=== PATIENT | female | born 1995 | race Caucasian/White ===

== ENCOUNTER → 2017-09-06 | Outpatient (CLI) | payer BC, OTHER ==
[~2017-09-06] MED LIST: AMOX500 PO; AMOX50SU; Amoxicillin500 MG PO; BC PILLS; CODACE30 PO; IBUP600 PO; IBUP800 PO; IRON150C PO; NEOPOLHCSU AS; NEOPOLHCSU LEFTEAR; ONDA4 PO; PENVK500 PO; PROM25 PO; RXCODACET PO; RXNEOPOLHC AS; Veetids 500500 MG PO; Verotin-Gr Cap1 EACH PO
[2017-09-07 15:04] LABS: Source VAGINAL
== END | disposition home or self-care (01) ==
LOC: LAB 11:44
PROVIDERS: Obstetrics & Gynecology
DX: Z33.1 Pregnant state, incidental (principal); Z11.3 Encounter for screening for infections with a predominantly sexual mode of transmission
CPT/HCPCS: 87491; 87591; G0123

== ENCOUNTER 2017-09-23 23:13 | Emergency (ER) | payer BC, OTHER ==
[~2017-09-23] VITALS: Ht 154.9 cm; Wt 52.6 kg
[~2017-09-23 23:13] MED LIST changes: -IBUP800 PO; -IRON150C PO; -PROM25 PO; -Verotin-Gr Cap1 EACH PO
[2017-09-23] MEDS ORDERED: Verotin-Gr Cap1 EACH PO (23:43)
[2017-09-24 00:25] LABS: BASOPHILS ABSOLUTE AUTO 0.01 K/mm3 (0.00-0.23); BASOPHILS PERCENT AUTO 0 % (0-2); EOSINOPHILS ABSOLUTE AUTO 0.01 K/mm3 (0.00-0.68); EOSINOPHILS PERCENT AUTO 0 % (0-6); Hematocrit 36.4 % (33.0-51.0); Hemoglobin 12.3 g/dL (11.5-16.0); IMMATURE GRAN ABSOLUTE AUTO 0.03 K/mm3 (0.00-0.10); IMMATURE GRAN PERCENT AUTO 0 % (0-1); LYMPHOCYTES ABSOLUTE AUTO 0.73 K/mm3 (0.84-5.20); LYMPHOCYTES PERCENT AUTO 8 % (21-46); MONOCYTES ABSOLUTE AUTO 0.59 K/mm3 (0.16-1.47); MONOCYTES PERCENT AUTO 7 % (4-13); Mean Corpuscular HGB 28.1 pg (26.0-34.0); Mean Corpuscular HGB Conc 33.8 g/dL (31.5-36.5); Mean Corpuscular Volume 83 fL (80-100); Mean Platelet Volume 11.3 fL (9.1-12.4); NEUTROPHILS ABSOLUTE AUTO 7.62 K/mm3 (1.96-9.15); NEUTROPHILS PERCENT AUTO 85 % (41-73); Platelet Count 202 K/mm3 (150-400); RDW Coefficient Variation 12.7 % (11.7-14.2); RDW Standard Deviation 38.8 fL (35.1-46.3); Red Blood Cell Count 4.37 M/mm3 (3.80-5.20); White Blood Cell Count 8.99 K/mm3 (4.00-11.30)
[2017-09-24 00:37] LABS: Alanine Aminotransfer (ALT/SGP 16 U/L (12-78); Albumin, Blood 3.5 g/dL (3.4-5.0); Alk Phos 51 U/L (50-136); Anion Gap 10 mmol/L (6-16); Aspartate Aminotrans (AST/SGOT 13 U/L (12-37); Bilirubin, Total 1.3 mg/dL (0.1-1.0); Blood Urea Nitrogen 6 mg/dL (8-24); Bun/Creatinine Ratio 13.8 (12.0-20.0); CO2, Blood 23 mmol/L (21-32); Calcium, Blood 8.6 mg/dL (8.5-10.1); Chloride, Blood 102 mmol/L (98-108); Creatinine, Blood 0.43 mg/dL (0.40-1.00); Glomerular Filtration Rate >60 (60-); Glucose, Blood 112 mg/dL (70-99); Potassium, Blood 3.4 mmol/L (3.5-5.5); Sodium, Blood 135 mmol/L (136-145)
[2017-09-24 00:49] LABS: Albumin/Globulin Ratio 0.8 (0.8-1.8); Globulin, Blood 4.2 g/dL (2.2-4.0); Total Protein, Blood 7.7 g/dL (6.4-8.2)
[2017-09-24 00:52] LABS: Influenza A Negative (NEGATIVE); Influenza B Negative (NEGATIVE)
[2017-09-24] MEDS ORDERED: PROM25 PO (00:53)
[2017-09-24 01:01] LABS: Source, Urine Voided
[2017-09-24 01:09] LABS: Bilirubin, Urine Neg (Neg); Blood, Urine Neg (Neg); Glucose Qualitative, Urine Neg (Neg); Ketones, Urine Neg (Neg); Leukocyte Esterase, Urine Neg (Neg); Nitrite, Urine Neg (Neg); Protein, Urine Neg (Neg); Urobilinogen, Urine NORM (Normal)
[2017-09-24 01:13] LABS: Appearance, Urine Clear (Clear); Color, Urine Yellow (P-Yellow)
== END 2017-09-24 01:34 | disposition home or self-care (01) ==
LOC: ER 23:13
PROVIDERS: Emergency Medicine
DX: O21.9 Vomiting of pregnancy, unspecified (principal); Z3A.13 13 weeks gestation of pregnancy
CPT/HCPCS: 36415; 80053; 81003; 85025; 87804; 96374; 99283; J2550; J7120

== ENCOUNTER → 2017-11-28 | Outpatient (CLI) | payer BC, OTHER ==
[~2017-11-28] MED LIST changes: +PROM25 PO; +Verotin-Gr Cap1 EACH PO
[2017-11-28 11:20] LABS: Source, Urine Clean Catch
[2017-11-28 13:07] LABS: Appearance, Urine Hazy (Clear); Bilirubin, Urine Neg (Neg); Blood, Urine 5+ (Neg); Color, Urine Yellow (P-Yellow); Glucose Qualitative, Urine Neg (Neg); Ketones, Urine Neg (Neg); Leukocyte Esterase, Urine Neg (Neg); Nitrite, Urine Neg (Neg); Protein, Urine Neg (Neg); Urobilinogen, Urine NORM (Normal); pH, Urine 6.5 (5.0-8.0)
[2017-11-28 13:36] LABS: Red Blood Cells, Urine 25-50 /hpf (0-2); White Blood Cells, Urine Not Seen /hpf (0-5)
[2017-11-28 13:37] LABS: Bacteria Many /hpf; Squamous Epithelial Cells Few /hpf (Few); Transitional Epithelial Cells Few /hpf (0-Rare)
== END | disposition home or self-care (01) ==
LOC: LAB SHORT 11:13 → LAB 11:13
PROVIDERS: Obstetrics & Gynecology
DX: R82.99 Other abnormal findings in urine (principal)
CPT/HCPCS: 81001; 87086

== ENCOUNTER → 2018-03-06 | Outpatient (CLI) | payer BC, OTHER | END | disposition home or self-care (01) | LOC: LAB SHORT 11:11 → LAB 11:11 | DX: Z33.1 Pregnant state, incidental (principal) | CPT/HCPCS: 87081; 87653 ==

== ENCOUNTER 2018-04-03 19:58 | Inpatient (IN) | payer BC, OTHER ==
[~2018-04-03] VITALS: Ht 154.9 cm; Wt 59.0 kg
[2018-04-03] MEDS ORDERED: IRON150C PO (20:21)
[2018-04-03 20:25] LABS: BASOPHILS ABSOLUTE AUTO 0.02 K/mm3 (0.00-0.23); BASOPHILS PERCENT AUTO 0 % (0-2); EOSINOPHILS ABSOLUTE AUTO 0.05 K/mm3 (0.00-0.68); EOSINOPHILS PERCENT AUTO 1 % (0-6); Hematocrit 36.5 % (33.0-51.0); Hemoglobin 12.2 g/dL (11.5-16.0); IMMATURE GRAN ABSOLUTE AUTO 0.03 K/mm3 (0.00-0.10); IMMATURE GRAN PERCENT AUTO 0 % (0-1); LYMPHOCYTES ABSOLUTE AUTO 1.78 K/mm3 (0.84-5.20); LYMPHOCYTES PERCENT AUTO 24 % (21-46); MONOCYTES ABSOLUTE AUTO 0.54 K/mm3 (0.16-1.47); MONOCYTES PERCENT AUTO 7 % (4-13); Mean Corpuscular HGB 28.6 pg (26.0-34.0); Mean Corpuscular HGB Conc 33.4 g/dL (31.5-36.5); Mean Corpuscular Volume 86 fL (80-100); NEUTROPHILS ABSOLUTE AUTO 5.12 K/mm3 (1.96-9.15); NEUTROPHILS PERCENT AUTO 68 % (41-73); Platelet Count 108 K/mm3 (150-400); RDW Coefficient Variation 13.2 % (11.7-14.2); RDW Standard Deviation 41.1 fL (35.1-46.3); Red Blood Cell Count 4.26 M/mm3 (3.80-5.20); White Blood Cell Count 7.54 K/mm3 (4.00-11.30)
[2018-04-03 20:29] LABS: Mean Platelet Volume 13.4 fL (9.1-12.4)
[2018-04-04 09:31] LABS: Hematocrit 37.3 % (33.0-51.0); Hemoglobin 12.4 g/dL (11.5-16.0); Mean Corpuscular HGB 28.6 pg (26.0-34.0); Mean Corpuscular HGB Conc 33.2 g/dL (31.5-36.5); Mean Corpuscular Volume 86 fL (80-100); Platelet Count 104 K/mm3 (150-400); RDW Coefficient Variation 13.2 % (11.7-14.2); RDW Standard Deviation 41.4 fL (35.1-46.3); Red Blood Cell Count 4.33 M/mm3 (3.80-5.20); White Blood Cell Count 8.23 K/mm3 (4.00-11.30)
[2018-04-04 09:32] LABS: Mean Platelet Volume 14.1 fL (9.1-12.4)
[2018-04-04 17:24] LABS: pH Umbilical Cord - Venous 7.38 (7.26-7.35)
[2018-04-04 17:25] LABS: PCO2 Cord - Venous 38.1 mmHg (40-50); PO2 Cord - Venous 34.6 mmHg (28-32)
[2018-04-05 05:15] LABS: Hematocrit 31.9 % (33.0-51.0); Hemoglobin 10.7 g/dL (11.5-16.0); Mean Corpuscular HGB Conc 33.5 g/dL (31.5-36.5); Mean Corpuscular Volume 86 fL (80-100); Platelet Count 100 K/mm3 (150-400); RDW Coefficient Variation 13.1 % (11.7-14.2); RDW Standard Deviation 41.2 fL (35.1-46.3); Red Blood Cell Count 3.69 M/mm3 (3.80-5.20); White Blood Cell Count 16.11 K/mm3 (4.00-11.30)
[2018-04-05 05:16] LABS: Mean Platelet Volume 13.7 fL (9.1-12.4)
[2018-04-05] MEDS ORDERED: IBUP800 PO (14:36)
[2018-04-05 15:02] LABS: Hematocrit 34.4 % (33.0-51.0); Hemoglobin 11.5 g/dL (11.5-16.0); Mean Corpuscular HGB 29.1 pg (26.0-34.0); Mean Corpuscular HGB Conc 33.4 g/dL (31.5-36.5); Mean Corpuscular Volume 87 fL (80-100); Platelet Count 113 K/mm3 (150-400); RDW Coefficient Variation 13.1 % (11.7-14.2); RDW Standard Deviation 41.8 fL (35.1-46.3); Red Blood Cell Count 3.95 M/mm3 (3.80-5.20); White Blood Cell Count 14.73 K/mm3 (4.00-11.30)
[2018-04-05 15:10] LABS: Mean Platelet Volume 13.7 fL (9.1-12.4)
== END 2018-04-05 18:25 | disposition home or self-care (01) | DRG 775 ==
LOC: BC 19:58
PROVIDERS: Obstetrics & Gynecology
PROC: 10E0XZZ Delivery of Products of Conception, External Approach (ICD-10-PCS; principal; 2018-04-03)
PROC: 0KQM0ZZ Repair Perineum Muscle, Open Approach (ICD-10-PCS; 2018-04-03)
PROC: 10907ZC Drainage of Amniotic Fluid, Therapeutic from Products of Conception, Via Natural or Artificial Opening (ICD-10-PCS; 2018-04-03)
PROC: 0UQMXZZ Repair Vulva, External Approach (ICD-10-PCS; 2018-04-03)
PROC: 0U7C7ZZ Dilation of Cervix, Via Natural or Artificial Opening (ICD-10-PCS; 2018-04-03)
DX: O99.12 Other diseases of the blood and blood-forming organs and certain disorders involving the immune mechanism complicating childbirth (principal); Z37.0 Single live birth; D69.6 Thrombocytopenia, unspecified; Z3A.40 40 weeks gestation of pregnancy; O70.1 Second degree perineal laceration during delivery; O70.0 First degree perineal laceration during delivery
CPT/HCPCS: 36415; 51702; 82803; 85025; 85027; J1885; J2590; J3010; J7120

== ENCOUNTER → 2019-06-14 | Outpatient (CLI) | payer BC, OTHER ==
[~2019-06-14] MED LIST changes: +IBUP800 PO; +IRON150C PO
== END | disposition home or self-care (01) ==
LOC: LAB EV 18:57 → LAB SHORT 18:57
DX: J02.9 Acute pharyngitis, unspecified (principal)
CPT/HCPCS: 87081

== ENCOUNTER → 2020-07-07 | Outpatient (CLI) | payer BC, OTHER | END | disposition home or self-care (01) | LOC: LAB 15:28 → LAB SHORT 15:28 | DX: O26.93 Pregnancy related conditions, unspecified, third trimester (principal); Z3A.36 36 weeks gestation of pregnancy | CPT/HCPCS: 87081; 87150 ==

== ENCOUNTER 2020-07-31 06:02 | Inpatient (IN) | payer BC, OTHER ==
[~2020-07-31] VITALS: Ht 154.9 cm; Wt 60.5 kg
[2020-07-31 08:27] LABS: Influenza A, PCR Negative (NEGATIVE); Influenza B, PCR Negative (NEGATIVE); Resp Syncytial Virus, PCR Negative (NEGATIVE); SARS-Cov-2 (COVID-19) PCR, MMC Negative (NEGATIVE)
[2020-07-31 08:42] LABS: BASOPHILS ABSOLUTE AUTO 0.02 K/mm3 (0.00-0.23); BASOPHILS PERCENT AUTO 0 % (0-2); EOSINOPHILS ABSOLUTE AUTO 0.07 K/mm3 (0.00-0.68); EOSINOPHILS PERCENT AUTO 1 % (0-6); Hematocrit 37.7 % (33.0-51.0); Hemoglobin 12.5 g/dL (11.5-16.0); IMMATURE GRAN ABSOLUTE AUTO 0.04 K/mm3 (0.00-0.10); IMMATURE GRAN PERCENT AUTO 1 % (0-1); LYMPHOCYTES ABSOLUTE AUTO 1.74 K/mm3 (0.84-5.20); LYMPHOCYTES PERCENT AUTO 22 % (21-46); MONOCYTES ABSOLUTE AUTO 0.67 K/mm3 (0.16-1.47); MONOCYTES PERCENT AUTO 9 % (4-13); Mean Corpuscular HGB 29.1 pg (26.0-34.0); Mean Corpuscular HGB Conc 33.2 g/dL (31.5-36.5); Mean Corpuscular Volume 88 fL (80-100); NEUTROPHILS ABSOLUTE AUTO 5.37 K/mm3 (1.96-9.15); NEUTROPHILS PERCENT AUTO 68 % (41-73); Platelet Count 123 K/mm3 (150-400); RDW Coefficient Variation 12.8 % (11.7-14.2); RDW Standard Deviation 41.2 fL (35.1-46.3); Red Blood Cell Count 4.29 M/mm3 (3.80-5.20); White Blood Cell Count 7.91 K/mm3 (4.00-11.30)
[2020-07-31 08:46] LABS: Mean Platelet Volume 13.3 fL (9.1-12.4)
[2020-08-01 05:46] LABS: BASOPHILS ABSOLUTE AUTO 0.02 K/mm3 (0.00-0.23); BASOPHILS PERCENT AUTO 0 % (0-2); EOSINOPHILS ABSOLUTE AUTO 0.15 K/mm3 (0.00-0.68); EOSINOPHILS PERCENT AUTO 1 % (0-6); Hematocrit 33.9 % (33.0-51.0); IMMATURE GRAN ABSOLUTE AUTO 0.06 K/mm3 (0.00-0.10); IMMATURE GRAN PERCENT AUTO 1 % (0-1); LYMPHOCYTES ABSOLUTE AUTO 2.29 K/mm3 (0.84-5.20); LYMPHOCYTES PERCENT AUTO 20 % (21-46); MONOCYTES ABSOLUTE AUTO 0.81 K/mm3 (0.16-1.47); MONOCYTES PERCENT AUTO 7 % (4-13); Mean Corpuscular HGB 28.9 pg (26.0-34.0); Mean Corpuscular HGB Conc 32.4 g/dL (31.5-36.5); Mean Corpuscular Volume 89 fL (80-100); NEUTROPHILS ABSOLUTE AUTO 8.43 K/mm3 (1.96-9.15); NEUTROPHILS PERCENT AUTO 72 % (41-73); Platelet Count 108 K/mm3 (150-400); RDW Coefficient Variation 12.7 % (11.7-14.2); RDW Standard Deviation 41.4 fL (35.1-46.3); Red Blood Cell Count 3.81 M/mm3 (3.80-5.20); White Blood Cell Count 11.76 K/mm3 (4.00-11.30)
[2020-08-01 05:47] LABS: Mean Platelet Volume 13.2 fL (9.1-12.4)
[2020-08-01] MEDS ORDERED: IBUP800 PO (15:53)
== END 2020-08-01 16:55 | disposition home or self-care (01) | DRG 807 ==
LOC: OBS 06:02 → BC 06:07 → OBS 06:10 → BC 06:13
PROVIDERS: ADMIT Obstetrics & Gynecology
PROC: 10E0XZZ Delivery of Products of Conception, External Approach (ICD-10-PCS; principal; 2020-07-31)
PROC: 3E033VJ Introduction of Other Hormone into Peripheral Vein, Percutaneous Approach (ICD-10-PCS; 2020-07-31)
PROC: 10907ZC Drainage of Amniotic Fluid, Therapeutic from Products of Conception, Via Natural or Artificial Opening (ICD-10-PCS; 2020-07-31)
PROC: 0HQ9XZZ Repair Perineum Skin, External Approach (ICD-10-PCS; 2020-07-31)
PROC: 00HU33Z Insertion of Infusion Device into Spinal Canal, Percutaneous Approach (ICD-10-PCS; 2020-07-31)
PROC: 3E0R3BZ Introduction of Anesthetic Agent into Spinal Canal, Percutaneous Approach (ICD-10-PCS; 2020-07-31)
DX: O69.81X0 Labor and delivery complicated by cord around neck, without compression, not applicable or unspecified (principal); Z37.0 Single live birth; O70.0 First degree perineal laceration during delivery; Z3A.40 40 weeks gestation of pregnancy; Z20.828 Contact with and (suspected) exposure to other viral communicable diseases
CPT/HCPCS: 0241U; 36415; 85025; 86850; 86900; 86901; J1885; J2001; J2590; J3010; J7120

== ENCOUNTER → 2020-09-07 | Outpatient (CLI) | payer BC, OTHER | LOC: LAB SHORT 15:00 → LAB 15:00 | DX: R30.0 Dysuria (principal) | CPT/HCPCS: 87077; 87086; 87186 ==

== ENCOUNTER → 2021-04-29 | Outpatient (CLI) | payer BC, OTHER ==
[~2021-04-29] MED LIST changes: +ACET325 PO; +BLOOD THINNER; +DEXA4 PO; +IVERMECTIN3 MG; +SERT25 PO; +SERT50 PO
[2021-04-29 12:19] LABS: Alanine Aminotransfer (ALT/SGP 40 U/L (12-78); Albumin, Blood 3.3 g/dL (3.4-5.0); Albumin/Globulin Ratio 0.7 (0.8-1.8); Alk Phos 72 U/L (40-126); Anion Gap 12 mmol/L (6-16); Aspartate Aminotrans (AST/SGOT 37 U/L (12-37); Bilirubin, Total 0.5 mg/dL (0.1-1.0); Blood Urea Nitrogen 7 mg/dL (8-24); Bun/Creatinine Ratio 10.9 (12.0-20.0); CO2, Blood 23 mmol/L (21-32); Calcium, Blood 8.2 mg/dL (8.5-10.1); Chloride, Blood 97 mmol/L (98-108); Creatinine, Blood 0.64 mg/dL (0.40-1.00); Globulin, Blood 4.6 g/dL (2.2-4.0); Glomerular Filtration Rate >60 (60-); Glucose, Blood 101 mg/dL (70-99); Potassium, Blood 3.3 mmol/L (3.5-5.5); Sodium, Blood 132 mmol/L (136-145); Total Protein, Blood 7.9 g/dL (6.4-8.2)
[2021-04-29 12:27] LABS: Hematocrit 38.7 % (33.0-51.0); Mean Corpuscular HGB 27.9 pg (26.0-34.0); Mean Corpuscular HGB Conc 33.6 g/dL (31.5-36.5); Mean Corpuscular Volume 83 fL (80-100); Mean Platelet Volume 10.8 fL (9.1-12.4); Platelet Count 177 K/mm3 (150-400); RDW Coefficient Variation 12.8 % (11.7-14.2); RDW Standard Deviation 38.5 fL (35.1-46.3); Red Blood Cell Count 4.66 M/mm3 (3.80-5.20); White Blood Cell Count 7.24 K/mm3 (4.00-11.30)
[2021-04-29 13:05] LABS: BAND PERCENT MAN 10 % (0-8); BASOPHILS PERCENT MAN 0 % (0-2); EOSINOPHILS PERCENT MAN 0 % (0-6); LYMPHOCYTES ABSOLUTE MAN 0.28 K/mm3 (0.84-5.20); LYMPHOCYTES PERCENT MAN 4 % (21-46); MONOCYTES ABSOLUTE MAN 0.07 K/mm3 (0.16-1.47); MONOCYTES PERCENT MAN 1 % (4-13); NEUTROPHILS ABSOLUTE MAN 6.87 K/mm3 (1.96-9.15); SEG NEUTROPHILS PERCENT MAN 85 % (41-73); TOTAL CELLS COUNTED 100
== END | disposition home or self-care (01) ==
LOC: LAB 12:06 → LAB SHORT 12:06
PROVIDERS: Chiropractor
DX: U07.1 COVID-19 (principal)
CPT/HCPCS: 80053; 85025; 85379

== ENCOUNTER → 2021-04-30 | Outpatient (CLI) | payer BC ==
[2021-04-30 10:20] LABS: BASOPHILS PERCENT AUTO 0 % (0-2); EOSINOPHILS PERCENT AUTO 0 % (0-6); Hematocrit 36.9 % (33.0-51.0); Hemoglobin 12.5 g/dL (11.5-16.0); IMMATURE GRAN ABSOLUTE AUTO 0.03 K/mm3 (0.00-0.10); IMMATURE GRAN PERCENT AUTO 0 % (0-1); LYMPHOCYTES PERCENT AUTO 8 % (21-46); MONOCYTES ABSOLUTE AUTO 0.25 K/mm3 (0.16-1.47); MONOCYTES PERCENT AUTO 3 % (4-13); Mean Corpuscular HGB 28.6 pg (26.0-34.0); Mean Corpuscular HGB Conc 33.9 g/dL (31.5-36.5); Mean Corpuscular Volume 84 fL (80-100); Mean Platelet Volume 11.1 fL (9.1-12.4); NEUTROPHILS ABSOLUTE AUTO 6.86 K/mm3 (1.96-9.15); NEUTROPHILS PERCENT AUTO 89 % (41-73); Platelet Count 202 K/mm3 (150-400); Red Blood Cell Count 4.37 M/mm3 (3.80-5.20); White Blood Cell Count 7.74 K/mm3 (4.00-11.30)
[2021-04-30 10:25] LABS: Anion Gap 9 mmol/L (6-16); Blood Urea Nitrogen 10 mg/dL (8-24); Bun/Creatinine Ratio 16.9 (12.0-20.0); CO2, Blood 27 mmol/L (21-32); Calcium, Blood 8.5 mg/dL (8.5-10.1); Chloride, Blood 102 mmol/L (98-108); Creatinine, Blood 0.59 mg/dL (0.40-1.00); Glomerular Filtration Rate >60 (60-); Glucose, Blood 97 mg/dL (70-99); Potassium, Blood 3.7 mmol/L (3.5-5.5); Sodium, Blood 138 mmol/L (136-145)
== END | disposition home or self-care (01) ==
LOC: LAB SHORT 10:13 → LAB 10:13
PROVIDERS: Physician Assistant Surgical
DX: U07.1 COVID-19 (principal)
CPT/HCPCS: 80048; 85025

== ENCOUNTER 2021-05-01 17:07 | Inpatient (IN) | payer BC ==
[~2021-05-01] VITALS: Ht 154.9 cm; Wt 51.4 kg
[~2021-05-01 17:07] MED LIST changes: -ACET325 PO; -BLOOD THINNER; -DEXA4 PO; -IVERMECTIN3 MG; -SERT25 PO; -SERT50 PO
[2021-05-01] MEDS ORDERED: ACET325 PO (17:21)
[2021-05-01] MEDS ORDERED: IVERMECTIN3 MG (17:22)
[2021-05-01] MEDS ORDERED: BLOOD THINNER (17:25)
[2021-05-01] MEDS ORDERED: SERT25 PO (17:26)
[2021-05-01] MEDS ORDERED: SERT50 PO (17:26)
[2021-05-01 17:48] LABS: BASOPHILS ABSOLUTE AUTO 0.01 K/mm3 (0.00-0.23); BASOPHILS PERCENT AUTO 0 % (0-2); EOSINOPHILS PERCENT AUTO 0 % (0-6); IMMATURE GRAN ABSOLUTE AUTO 0.15 K/mm3 (0.00-0.10); IMMATURE GRAN PERCENT AUTO 1 % (0-1); LYMPHOCYTES ABSOLUTE AUTO 0.73 K/mm3 (0.84-5.20); LYMPHOCYTES PERCENT AUTO 5 % (21-46); MONOCYTES ABSOLUTE AUTO 0.28 K/mm3 (0.16-1.47); MONOCYTES PERCENT AUTO 2 % (4-13); Mean Corpuscular HGB 28.2 pg (26.0-34.0); Mean Corpuscular HGB Conc 33.3 g/dL (31.5-36.5); Mean Corpuscular Volume 85 fL (80-100); Mean Platelet Volume 11.1 fL (9.1-12.4); NEUTROPHILS PERCENT AUTO 92 % (41-73); Platelet Count 293 K/mm3 (150-400); RDW Coefficient Variation 13.2 % (11.7-14.2); RDW Standard Deviation 40.8 fL (35.1-46.3); Red Blood Cell Count 4.25 M/mm3 (3.80-5.20); White Blood Cell Count 14.17 K/mm3 (4.00-11.30)
[2021-05-01 18:00] LABS: Alanine Aminotransfer (ALT/SGP 58 U/L (12-78); Albumin, Blood 2.8 g/dL (3.4-5.0); Albumin/Globulin Ratio 0.7 (0.8-1.8); Alk Phos 57 U/L (50-136); Anion Gap 10 mmol/L (6-16); Aspartate Aminotrans (AST/SGOT 53 U/L (12-37); Bilirubin, Total 0.4 mg/dL (0.1-1.0); Blood Urea Nitrogen 9 mg/dL (8-24); CO2, Blood 22 mmol/L (21-32); Calcium, Blood 8.1 mg/dL (8.5-10.1); Chloride, Blood 109 mmol/L (98-108); Globulin, Blood 4.1 g/dL (2.2-4.0); Glomerular Filtration Rate >60 (60-); Glucose, Blood 110 mg/dL (70-99); Potassium, Blood 3.4 mmol/L (3.5-5.5); Sodium, Blood 141 mmol/L (136-145); Total Protein, Blood 6.9 g/dL (6.4-8.2); Troponin I <0.015 ng/mL (0.000-0.040)
[2021-05-01 18:22] LABS: Bicarbonate Venous 23.9 mmol/L (24.0-30.0); PCO2 Venous 36.3 mmHg (38-42); PO2 Venous 130 mmHg (38-42); pH Blood Venous 7.42 (7.34-7.37)
[2021-05-01 18:23] LABS: Base Excess Venous -0.9 mmol/L
--- NOTE | 2021-05-01 22:04 | NUR ---
ASSUMPTION OF CARE PATIENT ARRIVED TO UNIT AT 2129 VIA GURNEY, PATIENT PRONED UPON ARRIVAL. SHIFTED SELF TO NEW BED, TOLERATED WELL. PATIENT A/O, 15L NON REBREATHER AND 15L OXIMIZER IN PLACE WITH SATS 99%. VITALS STABLE. LUNG SOUNDS DIMINISHED BILATERALLY THROUGHOUT. EDUCATED REGARDING PLAN TO REMAIN PRONED, PATIENT TOLERATING WELL AT THIS TIME AND VERBALIZED UNDERSTANDING OF IMPORTANCE. BY 2144 RT VALERIE REMOVED OXIMIZER AND KEPT 15L NON REBREATHER IN PLACE, 02 SATS REMAINED 97-99%. WILL TITRATE DOWN TOLERATED. CALLED AT 2200 FOR STATUS UPDATE, GIVEN BY [employer]. WILL REVIEW ORDERS AND TREAT PRESCRIBED.
--- NOTE | 2021-05-02 00:02 | NUR ---
REASSESSMENT NO ACUTE CHANGES FROM INITIAL ASSESMENT. NON REBREATHER REMOVED AND OXYMIZER PLACED AT 13L, 2 SATS AT 95%. VITALS REMAIN STABLE. PATIENT REMAINS PRONED AND TOLERATING WELL. DENIES DISCOMFORTS AT THIS TIME. CALL LIGHT IN REACH.
--- NOTE | 2021-05-02 04:00 | NUR ---
REASSESSMENT NO ACUTE CHANGES FROM PREVIOUS ASSESSMENT. 02 SATS ABOVE 95% ON 11L OXYMIZER. VITALS STABLE. CONTINUES TO REMAIN AND TOLERATE PRONING WELL. CALL LIGHT IN REACH.
[2021-05-02 04:19] LABS: BASOPHILS ABSOLUTE AUTO 0.01 K/mm3 (0.00-0.23); BASOPHILS PERCENT AUTO 0 % (0-2); EOSINOPHILS PERCENT AUTO 0 % (0-6); Hematocrit 35.8 % (33.0-51.0); Hemoglobin 12.2 g/dL (11.5-16.0); IMMATURE GRAN ABSOLUTE AUTO 0.21 K/mm3 (0.00-0.10); IMMATURE GRAN PERCENT AUTO 2 % (0-1); LYMPHOCYTES ABSOLUTE AUTO 0.75 K/mm3 (0.84-5.20); LYMPHOCYTES PERCENT AUTO 7 % (21-46); MONOCYTES ABSOLUTE AUTO 0.26 K/mm3 (0.16-1.47); MONOCYTES PERCENT AUTO 2 % (4-13); Mean Corpuscular HGB 28.2 pg (26.0-34.0); Mean Corpuscular HGB Conc 34.1 g/dL (31.5-36.5); Mean Corpuscular Volume 83 fL (80-100); Mean Platelet Volume 11.3 fL (9.1-12.4); NEUTROPHILS ABSOLUTE AUTO 10.18 K/mm3 (1.96-9.15); NEUTROPHILS PERCENT AUTO 89 % (41-73); Platelet Count 271 K/mm3 (150-400); RDW Coefficient Variation 13.2 % (11.7-14.2); RDW Standard Deviation 40.6 fL (35.1-46.3); Red Blood Cell Count 4.32 M/mm3 (3.80-5.20); White Blood Cell Count 11.41 K/mm3 (4.00-11.30)
[2021-05-02 04:45] LABS: Alanine Aminotransfer (ALT/SGP 52 U/L (12-78); Albumin, Blood 2.5 g/dL (3.4-5.0); Albumin/Globulin Ratio 0.6 (0.8-1.8); Alk Phos 54 U/L (50-136); Anion Gap 10 mmol/L (6-16); Aspartate Aminotrans (AST/SGOT 39 U/L (12-37); Bilirubin, Total 0.3 mg/dL (0.1-1.0); Blood Urea Nitrogen 10 mg/dL (8-24); Bun/Creatinine Ratio 21.4 (12.0-20.0); CO2, Blood 23 mmol/L (21-32); Chloride, Blood 106 mmol/L (98-108); Creatinine, Blood 0.47 mg/dL (0.40-1.00); Glomerular Filtration Rate >60 (60-); Glucose, Blood 113 mg/dL (70-99); Potassium, Blood 3.3 mmol/L (3.5-5.5); Sodium, Blood 139 mmol/L (136-145); Total Protein, Blood 6.5 g/dL (6.4-8.2)
--- NOTE | 2021-05-02 06:14 | NUR ---
SHIFT SUMMARY PATIENT ADMITTED AT 2130, PRONED UPON ARRIVAL AND REMAINED PRONED THROUGH SHIFT. PATIENT A/O, COOPERATIVE WITH CARE, VERBALIZED UNDERSTANDING TO EDUCATION REGARDING PRONING, MEDICATIONS, OXYGEN, AND SAFETY PRECAUTIONS. STARTED WITH OXYMIZER AND NON REBREATHER AT 15L, NOW AT 11L OXYMIZER WITH 02 SATS ABOVE 95%. 1L NS GIVEN CHARTED. PATIENT REMAINS NPO BUT TOLERATES SMALL SIPS OF WATER. UTILIZED BEDPAN FOR URINE, AND WAS INCONTINENT OF URINE ONCE. CALL LIGHT REMAINS IN REACH, WILL CONTINUE TO MONITOR AND REPORT TO ONCOMING RN.
--- NOTE | 2021-05-02 19:37 | NUR ---
A 25 year old female transferred to the floor with COVID-19 from PCU. Alert and oreinted x3 , able to make needs known. On oximezer 15 L with sp02 at 91 to 95% , no SOB , chest pain , fever and dizziness noted. Vital signs are stable. per report from PCU, pt had two diarrhea this morning but no diarrhea since arrival on the floor, continue to monitor.
[2021-05-03 05:08] LABS: BASOPHILS ABSOLUTE AUTO 0.04 K/mm3 (0.00-0.23); BASOPHILS PERCENT AUTO 0 % (0-2); EOSINOPHILS PERCENT AUTO 0 % (0-6); Hematocrit 37.2 % (33.0-51.0); Hemoglobin 12.4 g/dL (11.5-16.0); Mean Corpuscular HGB 27.8 pg (26.0-34.0); Mean Corpuscular HGB Conc 33.3 g/dL (31.5-36.5); Mean Corpuscular Volume 83 fL (80-100); Mean Platelet Volume 10.9 fL (9.1-12.4); Platelet Count 323 K/mm3 (150-400); RDW Coefficient Variation 13.4 % (11.7-14.2); RDW Standard Deviation 41.1 fL (35.1-46.3); Red Blood Cell Count 4.46 M/mm3 (3.80-5.20)
[2021-05-03 05:09] LABS: IMMATURE GRAN ABSOLUTE AUTO 0.21 K/mm3 (0.00-0.10); IMMATURE GRAN PERCENT AUTO 2 % (0-1); LYMPHOCYTES PERCENT AUTO 14 % (21-46); MONOCYTES PERCENT AUTO 6 % (4-13); NEUTROPHILS ABSOLUTE AUTO 9.05 K/mm3 (1.96-9.15); NEUTROPHILS PERCENT AUTO 78 % (41-73)
[2021-05-03 05:36] LABS: Albumin, Blood 2.4 g/dL (3.4-5.0); Anion Gap 7 mmol/L (6-16); Blood Urea Nitrogen 17 mg/dL (8-24); Bun/Creatinine Ratio 33.8 (12.0-20.0); CO2, Blood 25 mmol/L (21-32); Calcium, Blood 8.2 mg/dL (8.5-10.1); Chloride, Blood 106 mmol/L (98-108); Glomerular Filtration Rate >60 (60-); Glucose, Blood 94 mg/dL (70-99); Phosphorus, Blood 3.9 mg/dL (2.5-4.9); Potassium, Blood 3.6 mmol/L (3.5-5.5); Sodium, Blood 138 mmol/L (136-145)
--- NOTE | 2021-05-03 06:54 | NUR ---
TOLERATED 14 LITERS ON OXIMIZER WELL OVERNIGHT. ATIVAN GIVEN FOR NAUSEA AND ANXIETY. SLEPT ON SIDE AND PRONE MOST OF NIGHT.
--- NOTE | 2021-05-03 17:05 | NUR ---
PT IS A/OX4, PLEASANT AND COOPERATIVE. THE PT HAS BEEN TAPERED DOWN TO 5L/MIN O2 VIA NC WHILE AT REST IN BED FORM 13L/MIN O2 VIA OXYMIZER THIS AM. PT DENIES ANY PAIN. THE PT HAS BEEN ENCOURAGED TO LAY PRONE OFTEN SHE CAN TOLERATE. CALL LIGHT IN REACH WILL CONTINUE TO MONITOR AND ASSESS FOR CHANGES.
[2021-05-04 04:39] LABS: BASOPHILS ABSOLUTE AUTO 0.04 K/mm3 (0.00-0.23); BASOPHILS PERCENT AUTO 1 % (0-2); EOSINOPHILS PERCENT AUTO 0 % (0-6); Hematocrit 38.8 % (33.0-51.0); Mean Corpuscular HGB 28.1 pg (26.0-34.0); Mean Corpuscular HGB Conc 33.5 g/dL (31.5-36.5); Mean Corpuscular Volume 84 fL (80-100); Mean Platelet Volume 10.5 fL (9.1-12.4); Platelet Count 356 K/mm3 (150-400); RDW Coefficient Variation 13.2 % (11.7-14.2); RDW Standard Deviation 40.8 fL (35.1-46.3); Red Blood Cell Count 4.63 M/mm3 (3.80-5.20)
[2021-05-04 04:48] LABS: IMMATURE GRAN ABSOLUTE AUTO 0.22 K/mm3 (0.00-0.10); IMMATURE GRAN PERCENT AUTO 3 % (0-1); LYMPHOCYTES ABSOLUTE AUTO 1.88 K/mm3 (0.84-5.20); LYMPHOCYTES PERCENT AUTO 25 % (21-46); MONOCYTES ABSOLUTE AUTO 0.56 K/mm3 (0.16-1.47); MONOCYTES PERCENT AUTO 7 % (4-13); NEUTROPHILS PERCENT AUTO 65 % (41-73)
[2021-05-04 04:57] LABS: Albumin, Blood 2.5 g/dL (3.4-5.0); Anion Gap 5 mmol/L (6-16); Blood Urea Nitrogen 13 mg/dL (8-24); Bun/Creatinine Ratio 22.7 (12.0-20.0); CO2, Blood 29 mmol/L (21-32); Chloride, Blood 103 mmol/L (98-108); Creatinine, Blood 0.57 mg/dL (0.40-1.00); Glomerular Filtration Rate >60 (60-); Glucose, Blood 92 mg/dL (70-99); Potassium, Blood 3.7 mmol/L (3.5-5.5); Sodium, Blood 137 mmol/L (136-145)
--- NOTE | 2021-05-04 06:58 | NUR ---
PATIENT CONDITION IS THE SAME. DID ATTEMPT TO USE BSC TONIGHT INSTEAD OF BEDPAN. OXYGEN ON 7 LITERS NASAL CANNULA. NO ACUTE CHANGES NOTED OVERNIGHT
--- NOTE | 2021-05-04 16:35 | NUR ---
PT IS A/OX3 PLEASANT AND COOPERATIVE, THE PT IS UP WITH ASSIST TO THE BSC. PT DESAT'S WITH MINIMAL ACTIVITY AND BECOMES TACHY CARDIC HOWEVER RECOVER QUICKLY. THE PT HAS BEEN TITRATED TO 2L/MIN O2 VIA NC DOWN FROM 5L/MIN O2 THIS AM WILL TRY TO TITRATE OFF TO RA. PT DENIES ANY PAIN AT THIS TIME, CALL LIGHT IN REACH, WILL CONTINUE TO MONITOR AND ASSESS FOR CHANGES
--- NOTE | 2021-05-05 06:42 | NUR ---
SHIFT SUMMARY PT IS A 25 Y/O FEMALE, ADMITTED FOR ACUTE HYPOXEMIC RESPIRATORY FAILURE AND COVID POSITIVE. SHE IS A&O X 4, SBA TO THE BATHROOM. PT IS ON 2L VIA NC, SATTING > 90%. VITAL SIGNS OTHERWISE STABLE. NO C/O ACUTE PAIN OR NAUSEA. DYSPNEA NOTED WITH MOVEMENT OR AMBULATION, THOUGH PT DOES GET ANXIOUS WELL. NO ACUTE CHANGES IN PT CONDITION NOTED DURING THE NIGHT. WILL CONTINUE TO MONITOR AND TREAT PER EMAR UNTIL HAND OFF TO DAY SHIFT RN.
--- NOTE | 2021-05-05 13:55 | NUR ---
home o2 eval PT AT REST ON RA WAS 94%. WITH AMBULATION IN THE ROOM PT O2 REMAINED AT 95 % FOR THE DURATION.
[2021-05-05] MEDS ORDERED: DEXA4 PO (14:39)
--- NOTE | 2021-05-05 16:58 | NUR ---
pt discharged THE PT VERBALIZED UNDERSTANDING OF THE DC INSTRUCTIONS. THE PTS PRESCRIPTIONS WERE FAXED TO [facility] REQUESTED. THE PT WAS REMINDED TO CALL IN THE AM AND ESTABLISH A FOLLOW UP APPOINTMENT WITH HER PCP, THE PT WAS TRANSFERED VIA WHEEL CHAIR ACCOMPANIED BY AN ESCORT TO THE FRONT TO MEET HER RIDE, APPEARED TO BE BREATHING EASILY ON RA
== END 2021-05-05 16:58 | disposition home or self-care (01) | DRG 871 ==
LOC: ER 17:07 → MEDS 18:46 → PCU 18:46 → MEDS 05-02 15:10
PROVIDERS: Family Medicine; Physician Assistant; ADMIT Hospitalist
PROC: 8E0ZXY6 Isolation (ICD-10-PCS; principal; 2021-05-01)
PROC: XW033E5 Introduction of Remdesivir Anti-infective into Peripheral Vein, Percutaneous Approach, New Technology Group 5 (ICD-10-PCS; 2021-05-01)
PROC: 3E0333Z Introduction of Anti-inflammatory into Peripheral Vein, Percutaneous Approach (ICD-10-PCS; 2021-05-01)
DX: A41.89 Other specified sepsis (principal); U07.1 COVID-19; J12.82 Pneumonia due to coronavirus disease 2019; J96.01 Acute respiratory failure with hypoxia; E87.6 Hypokalemia; F41.9 Anxiety disorder, unspecified; Z79.899 Other long term (current) drug therapy
CPT/HCPCS: 36415; 80048; 80053; 80069; 82803; 82947; 83605; 84145; 84484; 84703; 85025; 85379; 87040; 93005; 93010; 94640; 94762; 96365; 96367; 96372-59; 96375; 99285-25; A9270; C9113; J0696; J1100; J1650; J7030; J7040

== ENCOUNTER 2024-10-03 07:04 | Inpatient (IN) | payer OTHER ==
[~2024-10-03] VITALS: Ht 152.4 cm; Wt 60.0 kg
[2024-10-03] VITALS (34 sets, daily range): BP systolic 95–135; BP diastolic 50–87
[~2024-10-03 07:04] MED LIST changes: +ACET325 PO; +BLOOD THINNER; +DEXA4 PO; +IVERMECTIN3 MG; +SERT25 PO; +SERT50 PO
[2024-10-03] MEDS ORDERED: FentaNYL Citrate 50 MCG/ML 2 ML Injection IV PRN (08:00)
[2024-10-03] MEDS ORDERED: Ondansetron HCl 2 MG / ML 2ML Vial IV PRN (08:05)
[2024-10-03] MEDS ORDERED: Lactated Ringer's 1,000 ML IV SCH ×5 (08:05→20:25)
[2024-10-03] MEDS ORDERED: Lactated Ringer's 1,000 ML IV PRN (08:05)
[2024-10-03] MEDS ORDERED: Misoprostol 200 MCG Tab PR PRN ×2 (08:05→20:25)
[2024-10-03] MEDS ORDERED: Carboprost Tromethamine 250 MCG/ML 1ML Amp IM PRN (08:05)
[2024-10-03] MEDS ORDERED: Misoprostol 200 MCG Tab BC PRN (08:05)
[2024-10-03] MEDS ORDERED: ePHEDrine Sulfate 50 MG/ML 1ML Injection XX PRN (08:05)
[2024-10-03] MEDS ORDERED: Oxytocin 10 Unit / ML Vial IM PRN (08:05)
[2024-10-03] MEDS ORDERED: Methylergonovine Maleate 0.2MG / ML 1ML Amp IM PRN ×2 (08:05→20:25)
[2024-10-03] MEDS ORDERED: Acetaminophen 500 MG Tab PO PRN (08:05)
[2024-10-03] MEDS ORDERED: OXYTOCIN/RINGER'S LACTATE 500 ML IV PRN (08:05)
[2024-10-03] MEDS ORDERED: FentaNYL 2mcg/ml-Bup 0.1% Epd 250 ML EPI PRN (08:05)
[2024-10-03] MEDS ORDERED: Calcium Carbonate 500 MG Tab Chew PO SCH (08:10)
[2024-10-03] MEDS ORDERED: Tranexamic Acid 1,000 MG in NS 100 ML IV SCH (08:25)
[2024-10-03 08:26] LABS: BASOPHILS ABSOLUTE AUTO 0.02 K/mm3 (0.00-0.23); BASOPHILS PERCENT AUTO 0 % (0-2); EOSINOPHILS ABSOLUTE AUTO 0.16 K/mm3 (0.00-0.68); EOSINOPHILS PERCENT AUTO 3 % (0-6); Hematocrit 36.8 % (33.0-51.0); Hemoglobin 12.5 g/dL (11.5-16.0); IMMATURE GRAN ABSOLUTE AUTO 0.03 K/mm3 (0.00-0.10); IMMATURE GRAN PERCENT AUTO 1 % (0-1); LYMPHOCYTES PERCENT AUTO 27 % (21-46); MONOCYTES ABSOLUTE AUTO 0.59 K/mm3 (0.16-1.47); MONOCYTES PERCENT AUTO 9 % (4-13); Mean Corpuscular HGB 28.7 pg (26.0-34.0); Mean Corpuscular Volume 85 fL (80-100); Mean Platelet Volume 11.9 fL (9.1-12.4); NEUTROPHILS ABSOLUTE AUTO 3.82 K/mm3 (1.96-9.15); NEUTROPHILS PERCENT AUTO 61 % (41-73); Platelet Count 133 K/mm3 (150-400); RDW Coefficient Variation 15.9 % (11.7-14.2); RDW Standard Deviation 49.6 fL (35.1-46.3); Red Blood Cell Count 4.35 M/mm3 (3.80-5.20); White Blood Cell Count 6.32 K/mm3 (4.00-11.30)
[2024-10-03] MEDS ORDERED: Acetaminophen 325 MG TABLET PO PRN (20:25)
[2024-10-03] MEDS ORDERED: Benzocaine Topical Anesthetic Spray 60GM TOP PRN (20:25)
[2024-10-03] MEDS ORDERED: FLU VACC TS2024-25(6MOS UP)/PF 45 MCG/0.5 ML SYRINGE IM SCH (20:30)
[2024-10-03] MEDS ORDERED: Witch Hazel/Glycerin PADS TOP PRN (20:30)
[2024-10-03] MEDS ORDERED: Docusate Sodium 100 MG Cap PO PRN (20:30)
[2024-10-03] MEDS ORDERED: OXYTOCIN/RINGER'S LACTATE 500 ML IV SCH (20:30)
[2024-10-03] MEDS ORDERED: Ibuprofen 400 MG Tab PO PRN (20:30)
[2024-10-04] VITALS (7 sets, daily range): BP systolic 115–131; BP diastolic 58–83
[2024-10-04] MEDS ORDERED: Ketorolac Tromethamine 30mg Vial IV SCH
[2024-10-04] MEDS ORDERED: Ketorolac Tromethamine 30mg Vial IV PRN ×2 (05:50→23:45)
[2024-10-04 07:44] LABS: BASOPHILS ABSOLUTE AUTO 0.03 K/mm3 (0.00-0.23); BASOPHILS PERCENT AUTO 0 % (0-2); EOSINOPHILS ABSOLUTE AUTO 0.08 K/mm3 (0.00-0.68); EOSINOPHILS PERCENT AUTO 1 % (0-6); Hemoglobin 11.6 g/dL (11.5-16.0); IMMATURE GRAN ABSOLUTE AUTO 0.05 K/mm3 (0.00-0.10); IMMATURE GRAN PERCENT AUTO 0 % (0-1); LYMPHOCYTES ABSOLUTE AUTO 1.49 K/mm3 (0.84-5.20); LYMPHOCYTES PERCENT AUTO 12 % (21-46); MONOCYTES ABSOLUTE AUTO 0.95 K/mm3 (0.16-1.47); MONOCYTES PERCENT AUTO 7 % (4-13); Mean Corpuscular HGB 29.1 pg (26.0-34.0); Mean Corpuscular HGB Conc 34.1 g/dL (31.5-36.5); Mean Corpuscular Volume 85 fL (80-100); Mean Platelet Volume 12.7 fL (9.1-12.4); NEUTROPHILS PERCENT AUTO 80 % (41-73); Platelet Count 114 K/mm3 (150-400); RDW Coefficient Variation 15.7 % (11.7-14.2); RDW Standard Deviation 49.2 fL (35.1-46.3); Red Blood Cell Count 3.99 M/mm3 (3.80-5.20)
[2024-10-04] MEDS ORDERED: Prenatal Vit/FE Fumarate/FA 1 Tab PO SCH (09:00)
== END 2024-10-04 21:20 | disposition home or self-care (01) | DRG 807 ==
LOC: OBS 07:04 → BC 07:07 → OBS 07:48 → BC 07:50
PROVIDERS: ADMIT Obstetrics & Gynecology
PROC: 10E0XZZ Delivery of Products of Conception, External Approach (ICD-10-PCS; principal; 2024-10-03)
PROC: 0HQ9XZZ Repair Perineum Skin, External Approach (ICD-10-PCS; 2024-10-03)
DX: O48.0 Post-term pregnancy (principal); Z37.0 Single live birth; Z3A.40 40 weeks gestation of pregnancy; O70.0 First degree perineal laceration during delivery; L40.9 Psoriasis, unspecified; O99.72 Diseases of the skin and subcutaneous tissue complicating childbirth
CPT/HCPCS: 36415; 51702; 85025; 86850; 86900; 86901; A9270; J1885; J2590; J7120

== ENCOUNTER 2024-11-14 12:21 | Day surgery (SDC) | payer OTHER ==
[~2024-11-14] VITALS: Ht 152.4 cm; Wt 50.7 kg
[~2024-11-14 12:21] MED LIST changes: +Bupivacaine 0.5% W/EPI 1:200000 SDV 30 ML Vial ONE; +Lactated Ringer's 1,000 ML IV ONE
[2024-11-14] MEDS ORDERED: Lactated Ringer's 1,000 ML IV ONE (12:55)
[2024-11-14] MEDS ORDERED: Ondansetron HCl 2 MG / ML 2ML Vial ONE (13:48)
[2024-11-14] MEDS ORDERED: FentaNYL Citrate 50 MCG/ML 2 ML Injection ONE (13:48)
[2024-11-14] MEDS ORDERED: Midazolam HCl 1MG / ML 2ML Vial ONE (13:48)
[2024-11-14] MEDS ORDERED: Dexamethasone Sod Phos 10 MG/ML 1ML VIAL ONE (13:48)
[2024-11-14] MEDS ORDERED: Rocuronium Bromide 10 MG/ML 5ML Injection IV ONE (13:48)
[2024-11-14] MEDS ORDERED: propofoL 20 ML IV ONE (13:48)
--- NOTE | 2024-11-14 13:56 | NUR ---
11/14/24 1356 Jv Garcia, VERSED 2MG IV GIVEN PER DR PETERSON, ANESTHESIA.
[2024-11-14] MEDS ORDERED: Sugammadex Sodium 200 MG/2ML SDV (100 MG/ML) ONE (14:18)
[2024-11-14] MEDS ORDERED: Ketorolac Tromethamine 30mg Vial ONE (14:30)
--- NOTE | 2024-11-14 14:54 | NUR ---
11/14/24 5900 Rosalba Obregon PT ARRIVES TO PACU DROWSY, BUT RESPONDS TO VERBAL STIMULI. PT DENIES PAIN/NAUSEA, VSS, ON RA. ABDOMINAL LAP SITE DRESSING C/D/I. NO VISIBLE SIGNS OF DISTRESS NOTED.
[2024-11-14 15:15] VITALS: BP 113/74
[2024-11-14] MEDS ORDERED: OxyCODONE 5 mg/Acetamin 325 mg TABLET ONE (15:22)
--- NOTE | 2024-11-14 15:43 | NUR ---
11/14/24 1543 Rosalba Obregon D/C INSTRUCTIONS GIVEN TO PT & PT'S , UNDERSTANDING VERBALIZED. PT HAS ALL BELONGINGS. PT TOLERATING PO DRINK & SNACK W/O COMPLAINT. PT STATES PAIN TOLERABLE, DENIES NAUSEA. PT DRESSED W/ HELP FROM . PT WHEELED TO PRIVATE VEHICLE, STEADY GAIT NOTED UPON TRANSFER FROM TO VEHICLE. NO VISIBLE SIGNS OF DISTRESS NOTED.
== END 2024-11-14 15:46 | disposition home or self-care (01) ==
LOC: ORSCSDS 12:21
PROVIDERS: Obstetrics & Gynecology
PROC: 0UT74ZZ Resection of Bilateral Fallopian Tubes, Percutaneous Endoscopic Approach (ICD-10-PCS; principal; 2024-11-14 14:00)
DX: Z30.2 Encounter for sterilization (principal); N83.8 Other noninflammatory disorders of ovary, fallopian tube and broad ligament
CPT/HCPCS: 88302; A9270; J1100; J1885; J2250; J2405; J2704; J3010; J7120